=== PATIENT | male | born 1985 | race Caucasian/White ===

== ENCOUNTER 2017-10-28 19:59 | Emergency (ER) | payer SELFPAY ==
[~2017-10-28] VITALS: Ht 182.9 cm; Wt 63.5 kg
[2017-10-28 20:07] VITALS: BP_SYST 124
[2017-10-28 20:33] VITALS: BP_SYST 124
== END 2017-10-28 20:33 | disposition home or self-care (01) ==
LOC: SED 19:59
DX: F15.90 Other stimulant use, unspecified, uncomplicated (principal); F17.210 Nicotine dependence, cigarettes, uncomplicated
CPT/HCPCS: 99283